=== PATIENT | male | born 1995 | race Caucasian/White ===

== ENCOUNTER 2021-05-07 16:50 | Emergency (ER) | payer MEDICAID ==
[2021-05-07] MEDS ORDERED: OLANZapine 5 MG Tab PO ONE (17:37)
[2021-05-07] MEDS ORDERED: LORazepam 1 MG Tab PO ONE (17:38)
--- NOTE | 2021-05-07 17:48 | EDM.PDOCBH ---
ED HPI GENERAL MEDICAL PROBLEM - General Chief Complaint: Behavioral/Psych Stated Complaint: MENTAL EVAL Time Seen by Provider: 05/07/21 17:00 Source of Information: Reports: Patient History Limitations: Reports: Altered Mental Status - History of Present Illness INITIAL COMMENTS - FREE TEXT/NARRATIVE: 25 yo M brought in by friends for abnormal behavior. Patient states he feels like he has a chemical imbalance in his head. Has had racing thoughts. Feels he is sometimes hearing voices. He is tangential and it is somewhat difficult to obtain a coherent history. He is unsure of duration of symptoms. Is very focused on pentecostal/restorationist, indicates he thinks some of his confusion is related to questions of his bonita. Is living with a friend, feels safe, wants to get help. No SI. Friend at bedside is former employer. States he heard from someone that the patient was walking around town/muttering/behaving very strangely. Not currently under the care of a psychiatrist. Friend checked on him and noted incoherant speech, strange behavior, patient muttering to himself/appearing to be responding to internal stimuli. Patient agreed to come here to get checked out. Patient denies recent ETOH use. Denies drug use. - Related Data Allergies Allergy/AdvReac Type Severity Reaction Status Date / Time No Known Allergies Allergy Verified 05/07/21 17:03 Home Meds: Home Meds . [No Known Home Meds] 05/07/21 [History] Past Medical History Psychiatric History: Reports: ADHD, Hallucinations Endocrine/Metabolic History: Reports: Obesity/BMI 30+ Social & Family History - Tobacco Use Tobacco Use Status *Q: Never Tobacco User Second Hand Smoke Exposure: No - Caffeine Use Caffeine Use: Reports: Coffee - Recreational Drug Use Recreational Drug Use: No ED ROS GENERAL - Review of Systems Review Of Systems: See Below Constitutional: Reports: No Symptoms HEENT: Reports: No Symptoms Respiratory: Reports: No Symptoms Cardiovascular: Reports: No Symptoms Endocrine: Reports: No Symptoms GI/Abdominal: Reports: No Symptoms : Reports: No Symptoms Musculoskeletal: Reports: No Symptoms Skin: Reports: No Symptoms Neurological: Reports: No Symptoms Psychiatric: Reports: Anxiety, Hallucinations, Mood Lability Hematologic/Lymphatic: Reports: No Symptoms Immunologic: Reports: No Symptoms ED EXAM, BEHAVIORAL HEALTH - Physical Exam Exam: See Below Exam Limited By: No Limitations General Appearance: Alert, WD/WN, No Apparent Distress, Anxious Eye Exam: Bilateral Eye: Normal Inspection Ears: Normal External Exam Nose: Normal Inspection Throat/Mouth: Normal Inspection Head: Atraumatic, Normocephalic Neck: Normal Inspection, Supple Respiratory/Chest: No Respiratory Distress Cardiovascular: Normal Peripheral Pulses, Regular Rate, Rhythm GI/Abdominal: No Distention Extremities: Normal Inspection Neurological: Alert, No Motor/Sensory Deficits, Oriented x 3 Psychiatric: Alert, Restless, Flight of Ideas, Orthodox Delusions, Tangential Thoughts, Pressured Speech Skin Exam: Warm, Dry, Intact, Normal color, No rash COURSE, BEHAVIORAL HEALTH COMP - Course Vital Signs: Last Vital Signs Temp 36.2 C 05/07/21 17:00 Pulse 70 05/07/21 17:00 Resp 16 05/07/21 17:00 BP 133/79 05/07/21 17:00 Pulse Ox 98 05/07/21 17:00 Orders, Labs, Meds: Active Orders 24 hr Category Date Time Status DRUG SCREEN, URINE [URCHEM] Stat Lab 05/07/21 18:25 Received Laboratory Tests 05/07/21 05/07/21 Range/Units 17:45 17:45 WBC 8.38 (4.23-9.07) K/mm3 RBC 5.28 (4.63-6.08) M/mm3 Hgb 16.1 (13.7-17.5) gm/dl Hct 47.0 (40.1-51.0) % MCV 89.0 (79.0-92.2) fl MCH 30.5 (25.7-32.2) pg MCHC 34.3 (32.2-35.5) g/dl RDW Std Deviation 45.0 H (35.1-43.9) fL Plt Count 258 (163-337) K/mm3 MPV 11.1 (9.4-12.3) fl Neut % (Auto) 55.2 (34.0-67.9) % Lymph % (Auto) 29.7 (21.8-53.1) % [place] % (Auto) 13.0 H (5.3-12.2) % Eos % (Auto) 1.6 (0.8-7.0) Baso % (Auto) 0.5 (0.1-1.2) % Neut # (Auto) 4.63 (1.78-5.38) K/mm3 Lymph # (Auto) 2.49 (1.32-3.57) K/mm3 [place] # (Auto) 1.09 H (0.30-0.82) K/mm3 Eos # (Auto) 0.13 (0.04-0.54) K/mm3 Baso # (Auto) 0.04 (0.01-0.08) K/mm3 Sodium 145 (136-145) mEq/L Potassium 4.1 (3.5-5.1) mEq/L Chloride 108 H (98-107) mEq/L Carbon Dioxide 26 (21-32) mEq/L Anion Gap 15.1 H (5-15) BUN 16 (7-18) mg/dL Creatinine 1.1 (0.7-1.3) mg/dL Est Cr Clr Drug Dosing 95.98 mL/min Estimated GFR (MDRD) > 60 (>60) mL/min BUN/Creatinine Ratio 14.5 (14-18) Glucose 94 (70-99) mg/dL Calcium 9.1 (8.5-10.1) mg/dL Total Bilirubin 0.4 (0.2-1.0) mg/dL AST 7 L (15-37) U/L ALT 24 (16-63) U/L Alkaline Phosphatase 76 (46-116) U/L Total Protein 6.9 (6.4-8.2) g/dl Albumin 3.9 (3.4-5.0) g/dl Globulin 3.0 gm/dL Albumin/Globulin Ratio 1.3 (1-2) Ethyl Alcohol 0.00 (0.00) gm% Medications Discontinued Medications Generic Name Dose Route Start Last Admin Trade Name Freq PRN Reason Stop Dose Admin Lorazepam 1 mg 05/07/21 17:38 05/07/21 17:56 Lorazepam 1 Mg Tab PO 05/07/21 17:39 1 mg ONETIME ONE Administration Olanzapine 5 mg 05/07/21 17:37 05/07/21 17:56 Olanzapine 5 Mg Tab PO 05/07/21 17:38 5 mg ONETIME ONE Administration Re-Assessment/Re-Exam: Patient appears to be having a manic episode. No known history of this previously. He has some insight - realizes something isn't right, is able to hold a conversation (though somewhat tangential), wants to get help, and is not abusing drugs or ETOH. We will give a dose of zyprexa + ativan, send psych screenign labs, and reassess. I believe he will be safe to dc home for tonight with plan to follow up at [facility] tomorrow morning. 18:40 - patient given zyprexa and ativan PO, he continues to be calm and marilia ative, is more subdued now. Is willing/able to follow up with [facility] tomorrow morning as planned. CBC/chem/LFT's all unremarkable. ETOH 0.0. Drug screen sent, will not wait for results as it will not mold changer. Discussed ED return precautions. Departure - Departure Time of Disposition: 18:39 Disposition: Home, Self-Care 01 Clinical Impression: Manic episode - Discharge Information Referrals: PCP,None [Primary Care Provider] - Forms: ED Department Discharge Additional Instructions: 1. Follow up at [facility] tomorrow at 8am 2. Return to the ED as needed for any worsening symptoms Sepsis Event Note (ED) - Evaluation Sepsis Screening Result: No Definite Risk - Focused Exam Vital Signs: Vital Signs Temp Pulse Resp BP Pulse Ox 05/07/21 17:00 36.2 C 70 16 133/79 98 - My Orders Last 24 Hours: My Active Orders 05/07/21 18:25 DRUG SCREEN, URINE [URCHEM] Stat - Assessment/Plan Last 24 Hours: My Active Orders 05/07/21 18:25 DRUG SCREEN, URINE [URCHEM] Stat
== END 2021-05-07 18:50 | disposition home or self-care (01) ==
LOC: JD.ED 16:50
DX: F30.9 Manic episode, unspecified (principal); E66.9 Obesity, unspecified; Z68.35 Body mass index [BMI] 35.0-35.9, adult
CPT/HCPCS: 36415; 80053; 80306; 80307; 85025; 99284; A9270; 99283

== ENCOUNTER 2021-05-24 15:07 | Emergency (ER) | payer MEDICAID ==
[2021-05-24] MEDS ORDERED: LORazepam 1 MG Tab PO ONE (16:09)
--- NOTE | 2021-05-24 16:09 | EDM.PDOCBH ---
ED HPI GENERAL MEDICAL PROBLEM - General Chief Complaint: Behavioral/Psych Stated Complaint: FEELING OFF/IN BETWEEN DEPRESSION MEDS Time Seen by Provider: 05/24/21 16:01 - History of Present Illness INITIAL COMMENTS - FREE TEXT/NARRATIVE: 26-year-old male presents the emergency room not feeling right. His Paxil was recently discontinued and he was started on Wellbutrin. Patient spent some time at the [facility] and was discharged a couple of days ago at the time of discharge he was discontinued off of his Paxil and started on Wellbutrin. The patient is not feeling well with this transition as of yet. Patient has thoughts of thinking he would be better if he was no longer living. He has no plans to end his life but is having some thoughts. He is nervous being alone. Denies any use of alcohol or recreational drugs. He does feel anxious. - Related Data Allergies Allergy/AdvReac Type Severity Reaction Status Date / Time No Known Allergies Allergy Verified 05/24/21 15:27 Home Meds: Home Meds LORazepam [Ativan] 0.5 mg PO Q8H #15 tab 05/24/21 [Rx] buPROPion [Wellbutrin] 1 tab PO DAILY 05/24/21 [History] Past Medical History - Past Health History Medical/Surgical History: Denies Medical/Surgical History Psychiatric History: Reports: ADHD, Hallucinations Endocrine/Metabolic History: Reports: Obesity/BMI 30+ - Infectious Disease History Infectious Disease History: Reports: None Social & Family History - Tobacco Use Tobacco Use Status *Q: Never Tobacco User Second Hand Smoke Exposure: No - Caffeine Use Caffeine Use: Reports: Coffee - Recreational Drug Use Recreational Drug Use: No ED ROS GENERAL - Review of Systems Review Of Systems: See Below Constitutional: Reports: No Symptoms HEENT: Reports: No Symptoms Respiratory: Reports: No Symptoms Cardiovascular: Reports: No Symptoms GI/Abdominal: Reports: No Symptoms : Reports: No Symptoms Musculoskeletal: Reports: No Symptoms Neurological: Reports: No Symptoms Psychiatric: Reports: Anxiety, Depression. Denies: Hallucinations, Homicidal Ideation ED EXAM, BEHAVIORAL HEALTH - Physical Exam Exam: See Below Exam Limited By: No Limitations General Appearance: Alert, No Apparent Distress Eye Exam: Bilateral Eye: Normal Inspection, PERRL Ears: Normal External Exam, Normal Canal, Hearing Grossly Normal, Normal TMs Nose: Normal Inspection, Normal Mucosa, No Blood Throat/Mouth: Normal Inspection, Normal Lips, Normal Teeth, Normal Gums, Normal Oropharynx, Normal Voice, No Airway Compromise Head: Atraumatic, Normocephalic Neck: Normal Inspection, Supple, Non-Tender, Full Range of Motion. No: Lymphadenopathy (L), Lymphadenopathy (R) Respiratory/Chest: No Respiratory Distress, Lungs Clear, Normal Breath Sounds Cardiovascular: Regular Rate, Rhythm, No Edema, No Murmur GI/Abdominal: Normal Bowel Sounds, Soft, Non-Tender Back Exam: Normal Inspection. No: CVA Tenderness (L), CVA Tenderness (R) Extremities: Normal Inspection, No Pedal Edema Neurological: Alert, Normal Cognition. No: Normal Mood/Affect (He is a little anxious) Psychiatric: Alert, Oriented, Other (He is anxious). No: Homicidal Thoughts, Hinduism Delusions, Suicidal Plan Skin Exam: Warm, Dry, Intact COURSE, BEHAVIORAL HEALTH COMP - Course Vital Signs: Last Vital Signs Temp 37.0 C 05/24/21 15:24 Pulse 72 05/24/21 15:24 Resp 20 05/24/21 15:24 BP 119/77 05/24/21 15:24 Pulse Ox 97 05/24/21 15:24 Orders, Labs, Meds: Laboratory Tests 05/24/21 05/24/21 05/24/21 Range/Units 16:23 16:23 16:23 WBC 10.30 H (4.23-9.07) K/mm3 RBC 5.24 (4.63-6.08) M/mm3 Hgb 15.8 (13.7-17.5) gm/dl Hct 47.1 (40.1-51.0) % MCV 89.9 (79.0-92.2) fl MCH 30.2 (25.7-32.2) pg MCHC 33.5 (32.2-35.5) g/dl RDW Std Deviation 45.8 H (35.1-43.9) fL Plt Count 276 (163-337) K/mm3 MPV 11.3 (9.4-12.3) fl Neut % (Auto) 72.6 H (34.0-67.9) % Lymph % (Auto) 16.2 L (21.8-53.1) % [place] % (Auto) 9.6 (5.3-12.2) % Eos % (Auto) 0.9 (0.8-7.0) Baso % (Auto) 0.4 (0.1-1.2) % Neut # (Auto) 7.48 H (1.78-5.38) K/mm3 Lymph # (Auto) 1.67 (1.32-3.57) K/mm3 [place] # (Auto) 0.99 H (0.30-0.82) K/mm3 Eos # (Auto) 0.09 (0.04-0.54) K/mm3 Baso # (Auto) 0.04 (0.01-0.08) K/mm3 Sodium 144 (136-145) mEq/L Potassium 3.8 (3.5-5.1) mEq/L Chloride 107 (98-107) mEq/L Carbon Dioxide 25 (21-32) mEq/L Anion Gap 15.8 H (5-15) BUN 18 (7-18) mg/dL Creatinine 0.9 (0.7-1.3) mg/dL Est Cr Clr Drug Dosing 120.33 mL/min Estimated GFR (MDRD) > 60 (>60) mL/min BUN/Creatinine Ratio 20.0 H (14-18) Glucose 91 (70-99) mg/dL Calcium 8.7 (8.5-10.1) mg/dL Total Bilirubin 0.4 (0.2-1.0) mg/dL AST 20 (15-37) U/L ALT 45 (16-63) U/L Alkaline Phosphatase 77 (46-116) U/L Total Protein 7.0 (6.4-8.2) g/dl Albumin 3.8 (3.4-5.0) g/dl Globulin 3.2 gm/dL Albumin/Globulin Ratio 1.2 (1-2) TSH 3rd Generation 0.872 (0.358-3.74) uIU/mL Urine Color (Yellow) Urine Appearance (Clear) Urine pH (5.0-8.0) Ur Specific [place] (1.005-1.030) Urine Protein (Negative) Urine Glucose (UA) (Negative) Urine Ketones (Negative) Urine Occult Blood (Negative) Urine Nitrite (Negative) Urine Bilirubin (Negative) Urine Urobilinogen (0.2-1.0) Ur Leukocyte Esterase (Negative) Salicylates 1.6 L (2.8-20) mg/dL Urine Opiates Screen (TSGAXU=228) Ur Buprenorphine Scrn (CUTOFF=10) Ur Oxycodone Screen (ICP7RH=678) Urine Methadone Screen (RUE3WN=181) Ur Propoxyphene Screen (HYYHUQ=697) Acetaminophen 0 L (10-30) ug/mL Ur Barbiturates Screen (FIBWHC=926) Ur Tricyclics Screen (CGNOIM=597) Ur Phencyclidine Scrn (CUTOFF=25) Ur Amphetamine Screen (DPKZBA=441) U Methamphetamines Scrn (AEQDMM=719) U Benzodiazepines Scrn (PLYHNZ=145) U Cocaine Metab Screen (ZCMSPA=361) U Marijuana (THC) Screen (CUTOFF=50) Ethyl Alcohol 0.00 (0.00) gm% 05/24/21 05/24/21 Range/Units 16:40 16:40 WBC (4.23-9.07) K/mm3 RBC (4.63-6.08) M/mm3 Hgb (13.7-17.5) gm/dl Hct (40.1-51.0) % MCV (79.0-92.2) fl MCH (25.7-32.2) pg MCHC (32.2-35.5) g/dl RDW Std Deviation (35.1-43.9) fL Plt Count (163-337) K/mm3 MPV (9.4-12.3) fl Neut % (Auto) (34.0-67.9) % Lymph % (Auto) (21.8-53.1) % [place] % (Auto) (5.3-12.2) % Eos % (Auto) (0.8-7.0) Baso % (Auto) (0.1-1.2) % Neut # (Auto) (1.78-5.38) K/mm3 Lymph # (Auto) (1.32-3.57) K/mm3 [place] # (Auto) (0.30-0.82) K/mm3 Eos # (Auto) (0.04-0.54) K/mm3 Baso # (Auto) (0.01-0.08) K/mm3 Sodium (136-145) mEq/L Potassium (3.5-5.1) mEq/L Chloride (98-107) mEq/L Carbon Dioxide (21-32) mEq/L Anion Gap (5-15) BUN (7-18) mg/dL Creatinine (0.7-1.3) mg/dL Est Cr Clr Drug Dosing mL/min Estimated GFR (MDRD) (>60) mL/min BUN/Creatinine Ratio (14-18) Glucose (70-99) mg/dL Calcium (8.5-10.1) mg/dL Total Bilirubin (0.2-1.0) mg/dL AST (15-37) U/L ALT (16-63) U/L Alkaline Phosphatase (46-116) U/L Total Protein (6.4-8.2) g/dl Albumin (3.4-5.0) g/dl Globulin gm/dL Albumin/Globulin Ratio (1-2) TSH 3rd Generation (0.358-3.74) uIU/mL Urine Color Yellow (Yellow) Urine Appearance Clear (Clear) Urine pH 6.5 (5.0-8.0) Ur Specific [place] > or = 1.030 (1.005-1.030) Urine Protein Negative (Negative) Urine Glucose (UA) Negative (Negative) Urine Ketones Negative (Negative) Urine Occult Blood Negative (Negative) Urine Nitrite Negative (Negative) Urine Bilirubin Negative (Negative) Urine Urobilinogen 0.2 (0.2-1.0) Ur Leukocyte Esterase Negative (Negative) Salicylates (2.8-20) mg/dL Urine Opiates Screen Negative (MDRCHK=971) Ur Buprenorphine Scrn Negative (CUTOFF=10) Ur Oxycodone Screen Negative (EQG1WD=618) Urine Methadone Screen Negative (LDM2FO=388) Ur Propoxyphene Screen Negative (NWGORW=146) Acetaminophen (10-30) ug/mL Ur Barbiturates Screen Negative (BOIWJP=156) Ur Tricyclics Screen Negative (JCZDKS=077) Ur Phencyclidine Scrn Negative (CUTOFF=25) Ur Amphetamine Screen Negative (DKVMAT=453) U Methamphetamines Scrn Negative (TEEVKX=440) U Benzodiazepines Scrn Negative (RGZCSD=151) U Cocaine Metab Screen Negative (QFUNEO=904) U Marijuana (THC) Screen Negative (CUTOFF=50) Ethyl Alcohol (0.00) gm% Medications Discontinued Medications Generic Name Dose Route Start Last Admin Trade Name Freq PRN Reason Stop Dose Admin Lorazepam 1 mg 05/24/21 16:09 05/24/21 16:23 Lorazepam 1 Mg Tab PO 05/24/21 16:10 1 mg ONETIME ONE Administration Medical Clearance: 05/24/21 19:27 Patient was evaluated by [facility] from [facility] for [facility] placement and they determined this would be a very appropriate course of therapy. I discussed the situation with the patient and he is looking forward to this. He states the Ativan works great I have informed him that I was thinking the best treatment for him while over at the RCC would be Ativan 0.53 times a day and he fully agrees and thinks this would be adequate. Departure - Departure Time of Disposition: 19:28 Disposition: Home, Self-Care 01 Clinical Impression: Depression with anxiety - Discharge Information Referrals: PCP,None [Primary Care Provider] - Forms: ED Department Discharge Additional Instructions: Be taken to the RCC. Return to the emergency room with any questions problems or worsening symptoms. I have sent a prescription for Ativan 0.5 mg every 8 hours for up to 5 days to [place] pharmacy in [facility] [employer] [facility]. Sepsis Event Note (ED) - Evaluation Sepsis Screening Result: No Definite Risk - Focused Exam Vital Signs: Vital Signs Temp Pulse Resp BP Pulse Ox 05/24/21 15:24 37.0 C 72 20 119/77 97
[2021-05-24 17:04] LABS: ACETAMINOPHEN 0 ug/mL (10-30)
== END 2021-05-24 19:45 | disposition home or self-care (01) ==
LOC: JD.ED 15:07
DX: F41.8 Other specified anxiety disorders (principal); E66.9 Obesity, unspecified; Z68.34 Body mass index [BMI] 34.0-34.9, adult
CPT/HCPCS: 36415; 80053; 80143; 80179; 80306; 80307; 81003; 84443; 85025; 99284; A9270; 99283

== ENCOUNTER 2021-06-05 12:47 | Emergency (ER) | payer MEDICAID ==
--- NOTE | 2021-06-05 13:11 | EDM.PDOC ---
ED HPI GENERAL MEDICAL PROBLEM - General Chief Complaint: Behavioral/Psych Stated Complaint: HEAD PRESSURE Time Seen by Provider: 06/05/21 13:11 - History of Present Illness INITIAL COMMENTS - FREE TEXT/NARRATIVE: 26-year-old male returns to emergency room not feeling right he has lightheadedness and pressure in the back of his head. Patient developed the symptoms after going to the gym and working out short time ago he came home and just felt really weak and tired and had a squeezing sensation in the back of his head. This is all resolved. The patient ate lunch before coming in and is doing much better now. - Related Data Allergies Allergy/AdvReac Type Severity Reaction Status Date / Time No Known Allergies Allergy Verified 06/05/21 12:57 Home Meds: Home Meds Topiramate 50 mg PO DAILY 05/24/21 [History] Escitalopram [Lexapro] 10 mg PO ASDIRECTED 06/05/21 [History] risperiDONE [Risperidone] 1 tab PO ASDIRECTED 06/05/21 [History] Past Medical History - Past Health History Medical/Surgical History: Denies Medical/Surgical History HEENT History: Reports: None Cardiovascular History: Reports: None Respiratory History: Reports: None Gastrointestinal History: Reports: None Genitourinary History: Reports: None Musculoskeletal History: Reports: None Neurological History: Reports: None Psychiatric History: Reports: ADHD, Hallucinations Endocrine/Metabolic History: Reports: Obesity/BMI 30+ Hematologic History: Reports: None Immunologic History: Reports: None Oncologic (Cancer) History: Reports: None Dermatologic History: Reports: None - Infectious Disease History Infectious Disease History: Reports: None - Past Surgical History Head Surgeries/Procedures: Reports: None HEENT Surgical History: Reports: None Cardiovascular Surgical History: Reports: None Respiratory Surgical History: Reports: None GI Surgical History: Reports: None Social & Family History - Family History Family Medical History: No Pertinent Family History - Tobacco Use Tobacco Use Status *Q: Never Tobacco User - Caffeine Use Caffeine Use: Reports: Soda - Recreational Drug Use Recreational Drug Use: No ED ROS GENERAL - Review of Systems Review Of Systems: See Below Constitutional: Reports: Other (See HPI) HEENT: Reports: No Symptoms Respiratory: Reports: No Symptoms Cardiovascular: Reports: No Symptoms GI/Abdominal: Reports: No Symptoms Psychiatric: Denies: Anxiety, Depression, Homicidal Ideation, Mood Lability, Suicidal Ideation ED EXAM, GENERAL - Physical Exam Exam: See Below Exam Limited By: No Limitations General Appearance: Alert, No Apparent Distress Head: Atraumatic, Normocephalic Neck: Normal Inspection, Supple, Non-Tender, Full Range of Motion, Other (Muscle tightness at the insertion of the skull). No: Lymphadenopathy (L), Lymphadenopathy (R) Respiratory/Chest: No Respiratory Distress, Lungs Clear, Normal Breath Sounds Cardiovascular: Regular Rate, Rhythm, No Edema, No Murmur Course - Vital Signs Last Recorded V/S: Last Vital Signs Temp 36.3 C 06/05/21 13:01 Pulse 71 06/05/21 13:01 Resp 18 06/05/21 13:01 BP 113/66 06/05/21 13:01 Pulse Ox 98 06/05/21 13:01 Departure - Departure Time of Disposition: 13:25 Disposition: Home, Self-Care 01 Clinical Impression: Depression with anxiety - Discharge Information Referrals: PCP,None [Primary Care Provider] - Forms: ED Department Discharge Additional Instructions: Return to the emergency room with any questions problems or worsening symptoms. Follow-up at [facility] as scheduled. Keep a bottle or to Gatorade at the house for such episodes when he return from the gym or after being outside for a while. Take your medications as directed. Try warm packs or ice packs to the back your neck and see if that helps. Sepsis Event Note (ED) - Evaluation Sepsis Screening Result: No Definite Risk - Focused Exam Vital Signs: Vital Signs Temp Pulse Resp BP Pulse Ox 06/05/21 13:01 36.3 C 71 18 113/66 98
== END 2021-06-05 13:32 | disposition home or self-care (01) ==
LOC: JD.ED 12:47
DX: F41.8 Other specified anxiety disorders (principal); E66.9 Obesity, unspecified; Z68.45 Body mass index [BMI] 70 or greater, adult
CPT/HCPCS: 99283; 99284